=== PATIENT | female | born 2000 | race Caucasian/White ===

== ENCOUNTER 2021-12-10 16:25 | Inpatient (IN) | payer OTHER ==
[~2021-12-10] VITALS: Ht 149.9 cm; Wt 58.1 kg
[2021-12-10 17:59] LABS: HEMOGLOBIN 11.1 gm/dl (12.3-15.3); RED BLOOD COUNT 4.3 M/UL (4.00-5.10); WHITE BLOOD COUNT 9.5 K/UL (4.5-11.0)
[2021-12-11 03:47] LABS: HEMOGLOBIN 11.8 gm/dl (12.3-15.3); RED BLOOD COUNT 4.62 M/UL (4.00-5.10)
[2021-12-11 03:49] LABS: WHITE BLOOD COUNT 12.6 K/UL (4.5-11.0)
[2021-12-11] MEDS ORDERED: COLACE 100MG C100 MG PO (17:00)
[2021-12-11] MEDS ORDERED: IBUPROFEN600 MG PO (17:00)
[2021-12-12 04:26] LABS: HEMOGLOBIN 10.8 gm/dl (12.3-15.3)
== END 2021-12-13 18:49 | disposition home or self-care (01) | DRG 807 ==
LOC: GENOP 16:25 → OB 16:36
PROVIDERS: Obstetrics & Gynecology; ADMIT Obstetrics & Gynecology
PROC: 10E0XZZ Delivery of Products of Conception, External Approach (ICD-10-PCS; principal; 2021-12-11)
PROC: 3E033VJ Introduction of Other Hormone into Peripheral Vein, Percutaneous Approach (ICD-10-PCS; 2021-12-11)
PROC: 0W8NXZZ Division of Female Perineum, External Approach (ICD-10-PCS; 2021-12-11)
PROC: 3E0P7VZ Introduction of Hormone into Female Reproductive, Via Natural or Artificial Opening (ICD-10-PCS; 2021-12-11)
PROC: 10907ZC Drainage of Amniotic Fluid, Therapeutic from Products of Conception, Via Natural or Artificial Opening (ICD-10-PCS; 2021-12-11)
DX: O99.12 Other diseases of the blood and blood-forming organs and certain disorders involving the immune mechanism complicating childbirth (principal); Z37.0 Single live birth; D69.6 Thrombocytopenia, unspecified; O99.344 Other mental disorders complicating childbirth; F32.A Depression, unspecified; F41.1 Generalized anxiety disorder; Z3A.39 39 weeks gestation of pregnancy; Z82.49 Family history of ischemic heart disease and other diseases of the circulatory system; Z80.3 Family history of malignant neoplasm of breast; Z81.8 Family history of other mental and behavioral disorders; Z80.41 Family history of malignant neoplasm of ovary
CPT/HCPCS: 36415; 59025; 81001; 82800; 85014; 85018; 85025; J0595; J2590